=== PATIENT | female | born 1965 | race African-American/Black ===

== ENCOUNTER → 2017-05-11 | Outpatient (CLI) | payer BC ==
--- NOTE | 2017-05-11 17:28 | Diagnostic Imaging Report ---
EXAM: Complete Abdominal Ultrasound INDICATION: ELEVATED RANDOLPH LOTT COMPARISON: None. TECHNIQUE: Transverse and longitudinal images of the upper abdomen were obtained. FINDINGS: Liver: Size: 13.2 cm in the right midclavicular line, normal Appearance: Slightly prominence of the portal triads suggesting mild decrease in echogenicity of the hepatic parenchyma is nonspecific finding, however, which can be seen with hepatic edema most often related to hepatitis and patent hepatic congestion. Smooth contour Mass: No focal masses Spleen: Size: 7.1 cm in length, normal Echogenicity: Normal Mass: No focal masses Gallbladder: Stones/Sludge: None Wall: 0.2 cm Appearance: No wall thickening, pericholecystic fluid or hydrops. Sonographic Frias's Sign: Negative Bile Ducts: Intrahepatic Ducts: No dilatation Extrahepatic Ducts: Common bile duct measures 0.3 cm, no dilatation Pancreas: Visualized portions of the pancreatic head, neck and proximal body are normal. Kidneys: Length: Right 11.0 cm Left 10.1 cm Echogenicity: Normal Collecting System: No hydronephrosis Stone: None Cyst/Mass: None Vessels: Aorta: Visualized portions are normal Inferior Vena Cava: Visualized portions are normal Main Portal Vein: 1.2 cm, normal size with hepatopetal flow. Free Fluid: No ascites or pleural effusion IMPRESSION: Nonspecific mildly decreased echogenicity of the hepatic parenchyma. MR of abdomen with MRCP may be helpful for further evaluation. Signed by: Dr. Lynsey Eden M.D. on 05/11/2017 5:24 PM
== END ==
LOC: US 12:48
PROVIDERS: ATTEND Family Medicine
DX: R17 Unspecified jaundice (principal)
CPT/HCPCS: 76700

== ENCOUNTER → 2017-07-01 | Day surgery (SDC) | payer BC ==
[~2017-07-01] MED LIST: ALLERGY MED PO; ATENOLOL PO; FENTANYL CITRATE/PF 100MCG/2 ML INJ ONE; GLUCAGON FOR INJ 1 MG VIAL ONE; HYOSCYAMINE SULFATE 0.5 MG/ML AMP ONE; LIDOCAINE HCL 2% LOCAL INJ 5 ML SDV VIAL INJ ONE; MIDAZOLAM HCL 2 MG/2 ML VIAL ONE; PANTOPRAZOLE 40 MG 10ML VIAL ONE; PRILOSEC OTC20 MG PO; PROPOFOL IV EMULSION 10 MG/ML 50 ML VIAL ONE; [UNRECOGNIZED DRUG - OTHER] PO
--- NOTE | 2017-07-02 01:12 | Operative Report ---
DATE OF PROCEDURE: July 01, 2017 REFERRING PHYSICIAN: Dr. Ashlee Xavier. PROCEDURES PERFORMED 1. Esophagogastroduodenoscopy with biopsies. 2. Colonoscopy with polypectomy. INDICATIONS FOR EGD: Heartburn, indigestion, and dark stools. INDICATIONS FOR COLONOSCOPY: Colorectal cancer screening. MEDICATION: Patient was done under MAC. Please see anesthesiologist's note. PROCEDURE: With patient in left lateral decubitus position, flexible fiberoptic Olympus gastroscope was introduced into the esophagus under direct visualization without any difficulty. There was some patchy erythema noted in distal esophagus. Some minimal nodularity was noted at the GE junction that was biopsied. The scope was then advanced with ease into the stomach. Mucosa overlying the antrum and the body revealed some patchy erythema and low-grade edema, and biopsies were obtained and sent to stain for H. pylori. Pylorus appeared to be of normal contour and shape. It was intubated with ease and the scope was advanced all the way to the 2nd portion of the duodenum. The scope was then withdrawn slowly. Mucosa overlying the proximal 2nd portion and the duodenal bulb appeared to be within normal limits. The scope was then withdrawn back into the stomach and retroflexed and the Lap Band appeared to be in good position. The fundus appeared to be within normal limits. The scope was then straightened out. It was subsequently withdrawn. Patient tolerated the procedure well. IMPRESSIONS 1. Distal esophagitis, mild. 2. Minimal nodularity gastroesophageal junction, biopsied. 3. Status post Lap Band, intact. 4. Gastritis, biopsied. Biopsies sent to stain for Helicobacter pylori. PLAN 1. Follow up histology. 2. Continue Nexium 40 mg 1 p.o. q.a.m. a.c. The patient was then turned around. After adequate lubrication of the anal canal, flexible fiberoptic Olympus colonoscope was inserted into the rectum with ease and advanced all the way to the cecum. The scope was then withdrawn slowly. Mucosa overlying the cecum, ascending colon, and transverse colon, other than for some scattered diverticular disease, appeared to be within normal limits. Diverticulosis was also noted in the left colon. One polyp was snared from the descending colon. In the sigmoid colon, 10 polyps were snared and 4 were hot biopsied. In the rectum, 5 were hot biopsied and 2 were snared. The scope was then retroflexed into the distal rectum and small internal hemorrhoids were noted, none of which was actively bleeding. The scope was then straightened out. The rectosigmoid area as well as the distal rectal area were decompressed. Scope was subsequently withdrawn. Patient tolerated the procedure well. IMPRESSIONS 1. Diverticulosis. 2. Descending colon polyp times 1, snared. 3. Sigmoid colon polyp times 14, ten snared and 4 hot biopsied. 4. Rectal polyp times 7, five hot biopsied and 2 snared. 5. Internal hemorrhoids, none actively bleeding. A total of 22 polyps were removed. PLAN 1. Follow up histology. 2. Initiate high-fiber, low-fat diet. 3. Initiate high-fiber supplement. 4. Timing of followup colonoscopy pending pathology report. Job#: [id number] CF cc:ASHLEE XAVIER DO
--- OUTSIDE RECORDS SUMMARY | 2017-07-03 11:25 | XMS REPORT ---
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 Allergies, Adverse Reactions, Alerts This patient has no known allergies or adverse reactions. Medications This patient has no known medications. Results Test Description Test Time Test Comments Text Results Atomic Results Result Comments US ABDOMEN COMPLETE [place] [address] Patient Name: ROSALVA MEHTA MR #: [id number] : 1965 Age/Sex: 52/F Req #: [id number] Adm Physician: Ordered by: MENDEZ XAVIER DO Report #: [id number] Location: US Room/Bed: Procedure: [id number] US/US ABDOMEN COMPLETE Exam Date: Exam Time: REPORT STATUS: Signed EXAM: Complete Abdominal Ultrasound INDICATION: ELEVATED RANDOLPH LOTT COMPARISON: None. TECHNIQUE: Transverse and longitudinal images of the upper abdomen were obtained. FINDINGS: Liver: Size: 13.2 cm in the right midclavicular line, normal Appearance: Slightly prominence of the portal triads suggesting mild decrease in echogenicity of the hepatic parenchyma is nonspecific finding, however, which can be seen with hepatic edema most often related to hepatitis and patent hepatic congestion. Smooth contour Mass: No focal masses Spleen: Size : 7.1 cm in length, normal Echogenicity: Normal Mass: No focal masses Gallbladder: Stones/Sludge: None Wall: 0.2 cm Appearance: No wall thickening, pericholecystic fluid or hydrops. Sonographic Frias's Sign: Negative Bile Ducts: Intrahepatic Ducts: No dilatation Extrahepatic Ducts: Common bile duct measures 0.3 cm, no dilatation Pancreas: Visualized portions of the pancreatic head, neck and proximal body are normal. Kidneys: Length: Right 11.0 cm Left 10.1 cm Echogenicity: Normal Collecting System: No hydronephrosis Stone: None Cyst/Mass: None Vessels: Aorta: Visualized portions are normal Inferior Vena Cava: Visualized portions are normal Main Portal Vein: 1.2 cm, normal size with hepatopetal flow. Free Fluid: No ascites or pleural effusion IMPRESSION: Nonspecific mildly decreased echogenicity of the hepatic parenchyma. MR of abdomen with MRCP may be helpful for further evaluation. Signed by: Dr. Lynsey Mohr M.D. on 05/11/2017 5:24 PM Dictated By: CRAIG MOHR MD, MD 23 Transcribed By: ELVIA on 05/11/171723 COPY TO: MENDEZ XAVIER DO
== END | disposition home or self-care (01) ==
LOC: OR 12:55
PROVIDERS: ATTEND Internal Medicine Gastroenterology
DX: Z12.11 Encounter for screening for malignant neoplasm of colon (principal); K63.5 Polyp of colon; K62.1 Rectal polyp; K29.50 Unspecified chronic gastritis without bleeding; K25.9 Gastric ulcer, unspecified as acute or chronic, without hemorrhage or perforation; K21.0 Gastro-esophageal reflux disease with esophagitis; Z98.84 Bariatric surgery status; K57.30 Diverticulosis of large intestine without perforation or abscess without bleeding; K64.8 Other hemorrhoids; B19.10 Unspecified viral hepatitis B without hepatic coma; I10 Essential (primary) hypertension; Z01.810 Encounter for preprocedural cardiovascular examination; Z68.25 Body mass index [BMI] 25.0-25.9, adult
CPT/HCPCS: 43239; 45384; 45385; 93005; J1610; J1980; J2001; J2250